=== PATIENT | female | born 1980 | race Caucasian/White ===

== ENCOUNTER 2016-10-03 22:08 | Inpatient (IN) | payer OTHER ==
[2016-10-03 22:27] LABS: URINE APPEARANCE SLCLOUDY; URINE BILIRUBIN NEGATIVE (NEGATIVE); URINE BLOOD NEGATIVE (NEGATIVE); URINE COLOR LTYELLOW; URINE GLUCOSE (UA) NEGATIVE (NEGATIVE); URINE KETONE NEGATIVE (NEGATIVE); URINE LEUK ESTERASE NEGATIVE (NEGATIVE); URINE NITRITE NEGATIVE (NEGATIVE); URINE PROTEIN NEGATIVE (NEGATIVE); URINE UROBILINOGEN NEGATIVE E.U./dl (0.2-1.0)
[2016-10-03 23:16] LABS: BASOPHIL 0.7 % (0-2.0); EOSINOPHIL 1.3 % (0-4.5); MCH 27.5 pg (25.7-33.7); MCHC 32.9 g/dl (32.0-36.0); MEAN CELL VOLUME 83.6 fl (80-96); MEAN PLT VOLUME 9.5 fl (7.5-11.1); NEUTROPHILS 77.3 % (42.8-82.8); PLATELET COUNT 191 K/MM3 (134-434); RDW 14.8 % (11.6-15.6); WHITE BLOOD COUNT 11.4 K/mm3 (4.0-10.0)
--- NOTE | 2016-10-03 23:27 | PDOC ---
[id number] Initial Comments: 10/03/16 23:06 CHIEF COMPLAINT: abdominal pain x 1 month HISTORY OF PRESENT ILLNESS: 35 yo F with no PMH presents to ED with intermittent R abdominal and R back pain x 1 month. She denies any vomiting or diarrhea and reports 'very little nausea". She denies any urinary symptoms including pain, frequency, or blood in the urine. Her last menstrual period was Sep 17 and it was normal. She denies any fever or chills. No recent travel or sick contacts. PAST MEDICAL HISTORY: Denies past medical history FAMILY HISTORY: Denies SOCIAL HISTORY: Denies tobacco, alcohol, illicit drug use. SURGICAL HISTORY: Denies ALLERGIES: No known drug allergies REVIEW OF SYSTEMS General/Constitutional: Denies fever or chills. Denies weakness, weight change. HEENT: Denies change in vision. Denies ear pain or discharge. Denies sore throat. Cardiovascular: Denies chest pain or shortness of breath. Respiratory: Denies cough, wheezing, or hemoptysis. Gastrointestinal: Intermittent RUQ pain radiating to back x 1 month. Denies nausea, vomiting, diarrhea or constipation. Denies rectal bleeding. Genitourinary: Denies dysuria, frequency, or change in urination. Musculoskeletal: Denies joint or muscle swelling or pain. Denies neck or back pain. Skin and breasts: Denies rash or easy bruising. Neurologic: Denies headache, vertigo, loss of consciousness, or loss of sensation. PHYSICAL EXAM General Appearance: Well-appearing, appropriately dressed. No apparent distress , no intoxication. HEENT: EOMI, PERRLA. No conjunctival pallor. No photophobia, scleral icterus. Respiratory/Chest: Lungs CTAB. Cardiovascular: RRR. S1, S2. Vascular Pulses: Dorsalis-Pedis (R): 2+, Dorsalis-Pedis (L): 2+ Gastrointestinal/Abdominal: Minimal RUQ tenderness. Normal bowel sounds. Abdomen soft, non-distended. No tenderness or rebound tenderness. No organomegaly, pulsatile mass, guarding, hernia, hepatomegaly, splenomegaly. Pelvic: External genitalia normal without lesions. Vaginal vault is clear without blood or discharge. Cervix is long and closed. No cervical motion tenderness. Uterus is nontender and normal in size. Adnexa are nontender and without masses. Lymphatic: No adenopathy, tenderness. Musculoskeletal/Extremities: Mild R CVA tenderness. Normal inspection. FROM of all extremities, normal capillary refill. No tenderness to extremities, pedal edema, swelling, erythema or deformity. Integumentary: Appropriate color, dry, warm. No cyanosis, erythema, jaundice or rash Neurologic: disability hearing officer II-XII intact. Fully oriented, alert. Appropriate mood/affect. Motor strength 5/5. No appreciable EOM palsy, facial droop or sensory deficit. <Marietta Castellano - Last Filed: 10/13/16 22:10> - General Chief Complaint: Pain, Acute Stated Complaint: ABD PAIN Time Seen by Provider: 10/03/16 22:32 Past History <Agustina Austin - Last Filed: 10/04/16 08:58> - Past Medical History Asthma: No Cancer: No Cardiac Disorders: No Diabetes: No HTN: No Seizures: No Thyroid Disease: No - Family Disease History Family Disease History: Heart Disease: Mother (hypertension) - Psycho/Social/Smoking Cessation Hx Suicidal Ideation: No Smoking History: Never smoked Have you smoked in the past 12 months: No Hx Alcohol Use: No Drug/Substance Use Hx: No Substance Use Type: None Hx Substance Use Treatment: No <Marietta Castellano - Last Filed: 10/13/16 22:10> - Past Medical History Allergies/Adverse Reactions: Allergies Allergy/AdvReac Type Severity Reaction Status Date / Time No Known Drug Allergies Allergy Verified 10/03/16 22:09 Home Medications: Ambulatory Orders Oxycodone HCl [Roxicodone -] 5 mg PO Q6H PRN #10 tablet MDD 4 10/08/16 *Physical Exam - Vital Signs Last Vital Signs Temp Pulse Resp BP Pulse Ox 98.8 F 58 L 18 93/56 98 10/04/16 07:15 10/04/16 07:15 10/04/16 07:15 10/04/16 07:15 10/04/16 07:15 <Agustina Austin - Last Filed: 10/04/16 08:58> - Vital Signs Last Vital Signs Temp Pulse Resp BP Pulse Ox 97.9 F 72 16 111/78 99 10/03/16 22:10 10/03/16 22:10 10/03/16 22:10 10/03/16 22:10 10/03/16 22:10 <Marietta Castellano - Last Filed: 10/13/16 22:10> ED Treatment Course - LABORATORY CBC & Chemistry Diagram: 10/03/16 23:00 10/03/16 23:00 - ADDITIONAL ORDERS Additional order review: Laboratory Results 10/03/16 10/03/16 23:00 22:13 Sodium 140 Potassium 3.9 Chloride 103 Carbon Dioxide 28 Anion Gap 9 BUN 14 Creatinine 0.7 Creat Clearance w eGFR > 60 Random Glucose 107 H D Calcium 8.7 Total Bilirubin 0.2 D AST 10 L D ALT 13 D Alkaline Phosphatase 61 Total Protein 6.7 Albumin 3.5 Lipase 106 Urine Color Ltyellow Urine Appearance Slcloudy Urine pH 6.0 Ur Specific [place] 1.017 Urine Protein Negative Urine Glucose (UA) Negative Urine Ketones Negative Urine Blood Negative Urine Nitrite Negative Urine Bilirubin Negative Urine Urobilinogen Negative Ur Leukocyte Esterase Negative Urine HCG, Qual Negative 10/03/16 23:00 RBC 4.30 MCV 83.6 MCHC 32.9 RDW 14.8 MPV 9.5 Neutrophils % 77.3 Lymphocytes % 12.7 D Monocytes % 8.0 D Eosinophils % 1.3 Basophils % 0.7 - Medications Given in the ED: ED Medications Discontinued Medications Generic Name Dose Route Start Last Admin Trade Name Freq PRN Reason Stop Dose Admin Cefazolin Sodium 1 gm/ 50 mls @ 100 mls/hr 10/04/16 03:12 10/04/16 03:29 Dextrose IVPB 10/04/16 03:41 100 mls/hr ONCE ONE Administration <Agustina Austin - Last Filed: 10/04/16 08:58> - LABORATORY CBC & Chemistry Diagram: 10/08/16 06:00 10/08/16 06:00 - ADDITIONAL ORDERS Additional order review: Laboratory Results 10/03/16 22:13 Urine Color Ltyellow Urine Appearance Slcloudy Urine pH 6.0 Ur Specific [place] 1.017 Urine Protein Negative Urine Glucose (UA) Negative Urine Ketones Negative Urine Blood Negative Urine Nitrite Negative Urine Bilirubin Negative Urine Urobilinogen Negative Ur Leukocyte Esterase Negative Urine HCG, Qual Negative <Marietta Castellano - Last Filed: 10/13/16 22:10> Medical Decision Making - Medical Decision Making 10/04/16 00:08 35 yo F with no PMH presents to ED with intermittent RLQ pain x 1 month. On exam, patient has very minimal RUQ tenderness and mild R CVA tenderness. Ddx includes but is not limited to; UTI, kidney stones, pancreatitis, cholecystitis, ovarian torsion. -CBC, CMP, lipase -UA, UCx, UPreg Labs: WBC 11.6, otherwise unremarkable. Pelvic exam unremarkable, CT/GC sent. Discussed case with ED attending Samantha, will order abdomen & pelvis CT r/o appy/ german/pancreatitis 10/04/16 03:12 CT results: Lung bases are clear. The visualized cardiac chambers are normal size and configuration. Gallbladder is distended, contains stones and may be mildly inflamed, suggesting cholecystitis. No biliary duct dilation. Normal liver, pancreas, spleen, adrenal glands and kidneys. The stomach and abdominal small and large bowel are normal. There is no aortic aneurysm. There is no significant retroperitoneal lymphadenopathy. The pelvic small and large bowel are normal. The appendix is normal. The uterus and adnexal structures are normal. Urinary bladder is unremarkable. There is no pelvic free fluid. No discrete pelvic lymphadenopathy is identified. IMPRESSION: Suspected cholecystitis may be confirmed with ultrasound. Read by: Nixon Link MD Discussed case with attending MD Singh, who requests patient be admitted for inpatient service. Discussed case with attending hospitalist . Patient was refused inpatient admission or observation. Discussed case with attending MD Singh. Will have patient remain in ED for ultrasound in am. Case discussed in detail with oncoming emergency provider including history, physical exam and ancillary studies. In brief, this patient is being seen in the ED for a chief complaint of: R abdominal pain I have completed the initial assessment interview note and have ordered the following labs: CBC, CMP, lipase I have reviewed the following results: all Pending results: Ultrasound Plan for disposition as follows: pending, likely outpatient f/u with surgery Oncoming KAMALAA Geovanna has assumed care for the patient and will complete the evaluation and treatment. <Marietta Castellano - Last Filed: 10/13/16 22:10> *DC/Admit/Observation/Transfer <Agustina Austin - Last Filed: 10/04/16 08:58> <Marietta Castellano - Last Filed: 10/13/16 22:10> Diagnosis at time of Disposition: Cholecystitis - Discharge Dispostion Disposition: HOME Condition at time of disposition: Improved - Prescriptions
[2016-10-03 23:43] LABS: ALBUMIN 3.5 g/dl (3.4-5.0); ALK PHOS 61 U/L (45-117); ANION GAP 9 (8-16); BILIRUBIN,TOTAL 0.2 mg/dL (0.2-1.0); CALCIUM 8.7 mg/dL (8.5-10.1); CO2 28 mmol/L (21-32); CREATININE 0.7 mg/dL (0.55-1.02); GLUCOSE,RANDOM 107 mg/dL (74-106); SGOT/AST 10 U/L (15-37); SGPT/ALT 13 U/L (12-78); TOT PROT 6.7 g/dl (6.4-8.2)
[2016-10-04] MEDS ORDERED: CEFAZOLIN 1 GM in DEXTROSE 5%-WATER - 50 ML IVPB ONE (03:12)
[2016-10-04] MEDS ORDERED: CEFAZOLIN (PRE-DOCKED) 50 ML IVPB ONE (03:20)
--- NOTE | 2016-10-04 07:44 | PDOC ---
ED Treatment Course - LABORATORY CBC & Chemistry Diagram: 10/03/16 23:00 10/03/16 23:00 - ADDITIONAL ORDERS Additional order review: Laboratory Results 10/03/16 10/03/16 23:00 22:13 Sodium 140 Potassium 3.9 Chloride 103 Carbon Dioxide 28 Anion Gap 9 BUN 14 Creatinine 0.7 Creat Clearance w eGFR > 60 Random Glucose 107 H D Calcium 8.7 Total Bilirubin 0.2 D AST 10 L D ALT 13 D Alkaline Phosphatase 61 Total Protein 6.7 Albumin 3.5 Lipase 106 Urine Color Ltyellow Urine Appearance Slcloudy Urine pH 6.0 Ur Specific [place] 1.017 Urine Protein Negative Urine Glucose (UA) Negative Urine Ketones Negative Urine Blood Negative Urine Nitrite Negative Urine Bilirubin Negative Urine Urobilinogen Negative Ur Leukocyte Esterase Negative Urine HCG, Qual Negative 10/03/16 23:00 RBC 4.30 MCV 83.6 MCHC 32.9 RDW 14.8 MPV 9.5 Neutrophils % 77.3 Lymphocytes % 12.7 D Monocytes % 8.0 D Eosinophils % 1.3 Basophils % 0.7 - Medications Given in the ED: ED Medications Discontinued Medications Generic Name Dose Route Start Last Admin Trade Name Freq PRN Reason Stop Dose Admin Cefazolin Sodium 1 gm/ 50 mls @ 100 mls/hr 10/04/16 03:12 10/04/16 03:29 Dextrose IVPB 10/04/16 03:41 100 mls/hr ONCE ONE Administration Progress Note - Progress Note Progress Note: I have received report from KAMALA Castellano regarding this patient. Pt's initial chief complaint: intermittent right abdominal pain and right back pain x 1 month. Pt's work up completed prior to sign out: labs, UA, abd/pelvis CT Pt treatment given from prior staff: none Pt plan to be completed: Awaiting gallbladder ultrasound to r/o cholecystitis. Dispo: Pending Medical Decision Making - Medical Decision Making A/P: 35 y/o afebrile female with no significant PMH c/o intermittent right abd pain and right back pain x 1 month. Labs and urine unremarkable. The CT scan suggests cholecystitis. Awaiting gallbladder ultrasound Gallbladder Ultrasound IMPRESSION: Probable acute calculus cholecystitis. Spoke with Isatu Gillis, who accepts admission on behalf of Dr. Rodriguez. Pt made NPO and started on fluids. *DC/Admit/Observation/Transfer Diagnosis at time of Disposition: Cholecystitis - Discharge Dispostion Admit: Yes
[2016-10-04] MEDS ORDERED: SODIUM CHLORIDE 1,000 ML IV STA (08:57)
[2016-10-04] MEDS ORDERED: ACETAMINOPHEN 325 MG TABLET (FP) PO PRN (10:31)
[2016-10-04] MEDS ORDERED: ONDANSETRON 4 MG/2 ML VIAL IVPB PRN (10:31)
--- NOTE | 2016-10-04 10:46 | HP ---
CHIEF COMPLAINT: Abdominal pain PCP: HISTORY OF PRESENT ILLNESS: This is a 35 yo F with no significant past medical history only x 1 presents to emergency department complaining of intermittent upper abdominal pain piercing through to right mid back intermittently x 1 month. States pain got worse over past two days. She denies any vomiting or diarrhea but reports being " little nausea". She denies fever or chills or any urinary symptoms including pain, frequency, or blood in the urine or any vaginal discharge. Her last menstrual period was Sep 17 and it was normal. ER course was notable for: (1)Abdominal CT suggesting cholecystitis (2)Abdominal ultrasound with diagnosis of probable acute calculus cholecystitis Recent Travel: none PAST MEDICAL HISTORY: No past medical history PAST SURGICAL HISTORY: x 1 Social History: Smoking: never Alcohol: never Drugs: never Family History: with 3 children Allergies: no known drugs allergies No Known Drug Allergies Allergy (Verified 10/03/16 22:09) HOME MEDICATIONS: Home Medications Medication Instructions Recorded NK [No Known Home Medication] 12/23/15 REVIEW OF SYSTEMS CONSTITUTIONAL: Absent: fever, chills, diaphoresis, generalized weakness, malaise, weight change +loss of appetite HEENT: Absent: rhinorrhea, nasal congestion, throat pain, throat swelling, difficulty swallowing, mouth swelling, ear pain, eye pain, visual changes CARDIOVASCULAR: Absent: chest pain, syncope, palpitations, irregular heart rate, lightheadedness , peripheral edema RESPIRATORY: Absent: cough, shortness of breath, dyspnea with exertion, orthopnea, wheezing, stridor, hemoptysis GASTROINTESTINAL: Absent: vomiting, diarrhea, constipation, melena, hematochezia +abdominal pain, +abdominal distension, +nausea, GENITOURINARY: Absent: dysuria, frequency, urgency, hesitancy, hematuria, flank pain, genital pain MUSCULOSKELETAL: Absent: myalgia, arthralgia, joint swelling, back pain, neck pain SKIN: Absent: rash, itching, pallor HEMATOLOGIC/IMMUNOLOGIC: Absent: easy bleeding, easy bruising, lymphadenopathy, frequent infections ENDOCRINE: Absent: unexplained weight gain, unexplained weight loss, heat intolerance, cold intolerance NEUROLOGIC: Absent: headache, focal weakness or paresthesias, dizziness, unsteady gait, seizure, mental status changes, bladder or bowel incontinence PSYCHIATRIC: Absent: anxiety, depression, suicidal or homicidal ideation, hallucinations. PHYSICAL EXAMINATION GENERAL: Awake, alert, and fully oriented, in no acute distress. HEAD: Normal with no signs of trauma. EYES: Pupils equal, round and reactive to light, extraocular movements intact, sclera anicteric, conjunctiva clear. No lid lag. EARS, NOSE, THROAT: Ears normal, nares patent, oropharynx clear without exudates. Moist mucous membranes. NECK: Normal range of motion, supple without lymphadenopathy, JVD, or masses. LUNGS: Breath sounds equal, clear to auscultation bilaterally. No wheezes, and no crackles. No accessory muscle use. HEART: Regular rate and rhythm, normal S1 and S2 without murmur, rub or gallop. ABDOMEN: Soft, not distended, normoactive bowel sounds, no guarding, no rebound , no masses. No hepatomegaly or splenomegaly. +tender, some guarding with deep palpation, MUSCULOSKELETAL: Normal range of motion at all joints. No bony deformities or tenderness. No CVA tenderness. UPPER EXTREMITIES: 2+ pulses, warm, well-perfused. No cyanosis. No clubbing. Cap refill <2 seconds. No peripheral edema. LOWER EXTREMITIES: 2+ pulses, warm, well-perfused. No calf tenderness. No peripheral edema. NEUROLOGICAL: Cranial nerves II-XII intact. Normal speech. Normal gait. PSYCHIATRIC: Cooperative. Good eye contact. Appropriate mood and affect. SKIN: Warm, dry, normal turgor, no rashes or lesions noted. ASSESSMENT/PLAN: This is a 35 yo F with no significant past medical history only x 1 presents to emergency department with intermittent upper abdominal pain and also pain to right mid back pain intermittently x 1 month with pain getting worse over past two days. She is admitted for calculous cholecystitis 1. Calculous Cholecystitis -NPO -protonix 40mg po -antipyretic/analgesia prn -GI consults -surgical consult -IVF -IV antibiotics; ceftriaxone 1g po daily ( Id consulted) VTE prophylaxis oob ambulating FEN Fluids: IV Normal saline Electrolyte replete as needed Nutrition: remain NPO Problem List - Problem (1) Cholecystitis Code(s): K81.9 - CHOLECYSTITIS, UNSPECIFIED Visit type - Emergency Visit Emergency Visit: Yes ED Registration Date: 10/04/16 Care time: The patient presented to the Emergency Department on the above date and was hospitalized for further evaluation of their emergent condition. - New Patient This patient is new to me today: Yes Date on this admission: 10/04/16 - Critical Care Critical Care patient: No
[2016-10-04 10:51] VITALS: BMI 24.0
--- NOTE | 2016-10-04 14:29 | CON.GI ---
Consult Consult Specialty:: GI Referred by:: Hospitalists Reason for Consultation:: Cholecystitis - History of Present Illness Chief Complaint: I was having pain (pointed to RUQ) that went to my back History of Present Illness: 35F with intermittent RUQ pain over the last 2 months (2-3 times per week) who experienced a severe episode that lasted 2 hours last night prompting her ER visit. In ER she was noted to have WBC 11.4, given a dose of ceftriaxone, noted to have a thick walled GB with stones on US and a CT scan that was not officially read yet but appears to reveal a thickened GB. GI called for further evaluation. No surgical consult placed. - History Source History Provided By: Patient Limitations to Obtaining History: No Limitations - Past Medical History ...LMP: 09/17/16 ...: No Additional Medical History: Denies standing medical problems - Past Surgical History Past Surgical History: Yes: Additional Surgical History: Denies previous surgeries - Alcohol/Substance Use Hx Alcohol Use: Yes (occasional) History of Substance Use: reports: None - Smoking History Smoking history: Never smoked Have you smoked in the past 12 months: No - Social History Usual Living Arrangement: With Spouse ADL: Independent Occupation: stay at home mother History of Recent Travel: No Home Medications - Allergies Allergies/Adverse Reactions: Allergies Allergy/AdvReac Type Severity Reaction Status Date / Time No Known Drug Allergies Allergy Verified 10/03/16 22:09 - Home Medications Home Medications: Ambulatory Orders NK [No Known Home Medication] 12/23/15 Family Disease History - Family Disease History Family Disease History: Other: Father (alive: 65: healthy), Mother (alive: 60: healthy), Brother (4 brothers: healthy), Sister (1 sister: healthy) Other Family History: three healthy children, no family history of colorectal cancer or other Gi malignancy Review of Systems - Review of Systems Constitutional: denies: Chills Cardiovascular: denies: Chest Pain Respiratory: denies: SOB Gastrointestinal: reports: Abdominal Pain, Nausea. denies: Diarrhea, Melena Physical Exam-GI Vital Signs: Vital Signs Temperature 98.9 F 10/04/16 10:45 Pulse Rate 59 L 10/04/16 10:45 Respiratory Rate 18 10/04/16 10:45 Blood Pressure 91/59 10/04/16 10:45 O2 Sat by Pulse Oximetry (%) 99 10/04/16 10:45 Constitutional: Yes: Calm Eyes: No: Sclera Icterus Cardiovascular: Yes: Regular Rate and Rhythm. No: Murmur Respiratory: Yes: CTA Bilaterally Gastrointestinal Inspection: No: Distention, Scars ...Auscultate: Yes: Normoactive Bowel Sounds ...Palpate: Yes: Tenderness (TTP RUQ, + Warner's sign) Edema: No Neurological: Yes: Alert, Oriented Labs: CBC, BMP 10/03/16 23:00 10/03/16 23:00 Hepatic Panel Total Bilirubin 0.2 mg/dL (0.2-1.0) D 10/03/16 23:00 AST 10 U/L (15-37) L D 10/03/16 23:00 ALT 13 U/L (12-78) D 10/03/16 23:00 Alkaline Phosphatase 61 U/L (45-117) 10/03/16 23:00 Albumin 3.5 g/dl (3.4-5.0) 10/03/16 23:00 Imaging - Results Cat Scan: Image Reviewed Ultrasound: Report Reviewed Problem List - Problems (1) Cholecystitis Assessment/Plan: Acute caluclulous cholecystitis: IV Abx Surgical consult NPO Discussed with Hospitalist BAR CATCHER Carlin Code(s): K81.9 - CHOLECYSTITIS, UNSPECIFIED
[2016-10-04] MEDS ORDERED: LEVOFLOXACIN 500 MG IVPB 100 ML IVPB SCH (14:45)
[2016-10-04] MEDS: DEXTROSE 5%-0.45% SALINE 1,000 ML IV SCH (15:58)
[2016-10-04] MEDS: METRONIDAZOLE 500 MG PREMIXED 100 ML IVPB SCH ×2 (15:58→18:26)
[2016-10-04] MEDS ORDERED: CEFTRIAXONE 2 GM in DEXTROSE 5%-WATER - 100 ML IVPB SCH (17:00)
[2016-10-04] MEDS: cefTRIAXone 2 GM/100 ML BAG (PRE-DOCKED) IVPB SCH (17:20)
[2016-10-05] MEDS: METRONIDAZOLE 500 MG PREMIXED 100 ML IVPB SCH ×3 (02:10→18:06)
[2016-10-05 07:30] LABS: BASOPHIL 0.5 % (0-2.0); EOSINOPHIL 2.6 % (0-4.5); MEAN CELL VOLUME 84.9 fl (80-96); MEAN PLT VOLUME 9.9 fl (7.5-11.1); NEUTROPHILS 63.8 % (42.8-82.8); PLATELET COUNT 167 K/MM3 (134-434); RDW 14.7 % (11.6-15.6); WHITE BLOOD COUNT 6.1 K/mm3 (4.0-10.0)
[2016-10-05 08:52] LABS: CALCIUM 8.4 mg/dL (8.5-10.1); CREATININE 0.6 mg/dL (0.55-1.02)
--- NOTE | 2016-10-05 09:37 | CONSULT ---
- Consultation REQUESTING PROVIDER: CHANTALE STOVER CONSULT REQUEST: I have been asked to surgically evaluate this patient for acute cholecystitis/cholelithiasis by Dr. Payton and DOCUMENT IMPROVEMENT SPECIALIST Josemanuel. PCP:Juanita Abernathy HISTORY OF PRESENT ILLNESS: 36 y/o female presented w/ 2 months of intermittent RUQ abdominal; w/u here in the ER is c/w acute cholecystitis/ cholelithiasis; patient staes she is better since admission; w/u and tx. to date reviewed. PMHx: non contributory PSHx: C-S Home Medications Medication Instructions Recorded NK [No Known Home Medication] 12/23/15 Allergies Allergy/AdvReac Type Severity Reaction Status Date / Time No Known Drug Allergies Allergy Verified 10/03/16 22:09 REVIEW OF SYSTEMS: CONSTITUTIONAL: Absent: fever, chills, diaphoresis, generalized weakness, malaise, loss of appetite, weight change CARDIOVASCULAR: Absent: chest pain, syncope, palpitations, irregular heart rate, lightheadedness , peripheral edema RESPIRATORY: Absent: cough, shortness of breath, dyspnea with exertion, wheezing, stridor, hemoptysis GASTROINTESTINAL: As above; post prendial abdominal pain and FFI w/ nausea. GENITOURINARY: Absent: dysuria, frequency, urgency, hesitancy, hematuria, flank pain, genital pain MUSCULOSKELETAL: Absent: myalgia, arthralgia, joint swelling, back pain, neck pain SKIN: Absent: rash, itching, pallor HEMATOLOGIC/IMMUNOLOGIC: Absent: easy bleeding, easy bruising, lymphadenopathy NEUROLOGIC: Absent: headache, focal weakness, paresthesias, dizziness, unsteady gait, seizure, mental status changes, bladder or bowel incontinence PSYCHIATRIC: Absent: anxiety, depression, suicidal or homicidal ideation, hallucinations. PHYSICAL EXAM: GENERAL: Awake, alert, and fully oriented, in no acute distress. HEAD: Normal with no signs of trauma. NECK: Normal ROM, supple without lymphadenopathy, JVD, or masses. LUNGS: Clear to auscultation bilat anteriorly. No wheezes, and no crackles. No accessory muscle use. HEART: Regular rate and rhythm. No murmurs ABDOMEN: Soft, nontender, not distended, normoactive bowel sounds, no guarding, no rebound, no masses. No organomegaly; healed C-S scar MUSCULOSKELETAL: Normal ROM at all joints. No bony deformities or tenderness. No CVA tenderness. UPPER EXTREMITIES: 2+ pulses, warm, well-perfused. No cyanosis. Cap refill <2 seconds. No peripheral edema. LOWER EXTREMITIES: 2+ pulses, warm, well-perfused. No calf tenderness. No peripheral edema. NEUROLOGICAL: Normal speech, gait not observed. PSYCH: Cooperative. Good eye contact. Appropriate mood and affect. SKIN: Warm, dry, normal turgor, no rashes or lesions noted. Vital Signs Temperature 98.3 F 10/05/16 06:00 Pulse Rate 62 10/05/16 06:00 Respiratory Rate 20 10/05/16 06:00 Blood Pressure 90/55 10/05/16 06:00 O2 Sat by Pulse Oximetry (%) 100 10/04/16 15:00 Lab Results WBC 6.1 K/mm3 (4.0-10.0) D 10/05/16 06:00 RBC 4.24 M/mm3 (3.60-5.2) 10/05/16 06:00 Hgb 11.9 GM/dL (10.7-15.3) 10/05/16 06:00 Hct 36.0 % (32.4-45.2) 10/05/16 06:00 MCV 84.9 fl (80-96) 10/05/16 06:00 MCHC 33.0 g/dl (32.0-36.0) 10/05/16 06:00 RDW 14.7 % (11.6-15.6) 10/05/16 06:00 Plt Count 167 K/MM3 (134-434) 10/05/16 06:00 Sodium 141 mmol/L (136-145) 10/05/16 06:00 Potassium 4.0 mmol/L (3.5-5.1) 10/05/16 06:00 Chloride 106 mmol/L (98-107) 10/05/16 06:00 Carbon Dioxide 25 mmol/L (21-32) 10/05/16 06:00 Anion Gap 10 (8-16) 10/05/16 06:00 BUN 5 mg/dL (7-18) L D 10/05/16 06:00 Creatinine 0.6 mg/dL (0.55-1.02) 10/05/16 06:00 Random Glucose 102 mg/dL (74-106) 10/05/16 06:00 Calcium 8.4 mg/dL (8.5-10.1) L 10/05/16 06:00 Blood Type O POSITIVE 10/05/16 06:00 Antibody Screen Negative 10/05/16 06:00 CT scan a/p reviewed; US reviewed; LFT's wnl IMP: acute cholecystitis/cholelithiasis PLAN: Lap german possible open possible open 10/06/16; r/b/t alternatives to surgery d/w the patient who will give informed consent; conversion to an open procedure discussed. Chago Mendenhall MD FACS Visit type - Case Type Case Type: ED Admission - Emergency Emergency Visit: Yes ED Registration Date: 10/04/16 Care time: The patient presented to the Emergency Department on the above date and was hospitalized for further evaluation of their emergent condition.
[2016-10-05] MEDS ORDERED: CEFTRIAXONE 50 ML IVPB SCH (10:00)
[2016-10-05] MEDS: cefTRIAXone 2 GM/100 ML BAG (PRE-DOCKED) IVPB SCH (11:26)
[2016-10-05] MEDS: PANTOPRAZOLE 40 MG TABLET (FP) PO SCH ×2 (11:26→14:58)
--- NOTE | 2016-10-05 12:49 | PN ---
Physical Exam: SUBJECTIVE: Patient seen and examined at bedside. Denies pain, nausea, vomiting. Feels hungry. OBJECTIVE: Vital Signs Period Temp Pulse Resp BP Sys/Mcdonald Pulse Ox Last 24 Hr 97.8 F-98.3 F 61-72 17-20 84-111/47-70 100 GENERAL: The patient is awake, alert, and fully oriented, in no acute distress. HEAD: Normal with no signs of trauma. EYES: PERRL, extraocular movements intact, sclera anicteric, conjunctiva clear. No ptosis. LUNGS: Breath sounds equal, clear to auscultation bilaterally, no wheezes, no crackles, no accessory muscle use. HEART: Regular rate and rhythm, S1, S2 without murmur, rub or gallop. ABDOMEN: Soft, very mild tenderness over epigastrum; nondistended, normoactive bowel sounds, no guarding, no rebound EXTREMITIES: 2+ pulses, warm, well-perfused, no edema. NEUROLOGICAL: Cranial nerves II through XII grossly intact. Normal speech, gait not observed. Laboratory Results - last 24 hr 10/05/16 10/05/16 10/05/16 06:00 06:00 06:00 WBC 6.1 D RBC 4.24 Hgb 11.9 Hct 36.0 MCV 84.9 MCHC 33.0 RDW 14.7 Plt Count 167 MPV 9.9 Neutrophils % 63.8 Lymphocytes % 23.5 D Monocytes % 9.6 Eosinophils % 2.6 D Basophils % 0.5 Sodium 141 Potassium 4.0 Chloride 106 Carbon Dioxide 25 Anion Gap 10 BUN 5 L D Creatinine 0.6 Random Glucose 102 Calcium 8.4 L Total Amylase 52 Lipase 119 Blood Type O POSITIVE Antibody Screen Negative Active Medications Generic Name Dose Route Start Last Admin Trade Name Freq PRN Reason Stop Dose Admin Acetaminophen 650 mg 10/04/16 10:31 Tylenol - PO Q4H PRN FEVER OR PAIN Ceftriaxone Sodium 2 gm 10/04/16 17:00 10/05/16 11:26 Rocephin 2gm Ivpb (Pre-Docked) IVPB 2 gm DAILY CINTHYA Administration Metronidazole 100 mls @ 100 mls/hr 10/04/16 14:45 10/05/16 11:27 Flagyl 500mg Premixed Ivpb - IVPB 100 mls/hr Q8H-IV CINTHYA Administration Dextrose/Sodium Chloride 1,000 mls @ 125 mls/hr 10/04/16 14:45 10/04/16 15:58 D5-1/2ns - IV 125 mls/hr ASDIR CINTHYA Administration Pantoprazole Sodium 40 mg 10/05/16 10:00 10/05/16 11:26 Protonix - PO 40 mg DAILY CINTHYA Administration ASSESSMENT/PLAN: This is a 35 yo F with no significant past medical history only x 1 presents to emergency department with intermittent upper abdominal pain and also pain to right mid back pain intermittently x 1 month with pain getting worse over past two days. She is admitted for calculous cholecystitis Acute cholecystitis/cholelithiasis --CT and US consistent with acute calculus cholecystitis --LFTs wnl --seen and evaluated by Dr. Mendenhall, surgery scheduled for 10/06 --continue empiric ceftriaxone (day #2) and metronidazole (day #2) --NPO F/E/N Fluids: D%1/2 @ 125mL/hr Electrolytes: replete as indicated Nutrition: NPO DVT prophylaxis: no chemical prophylaxis due to surgery; SCDs, oob, ambulation Dispo: continues to require inpatient care. Full Code. Visit type - Emergency Visit Emergency Visit: Yes ED Registration Date: 10/04/16 Care time: The patient presented to the Emergency Department on the above date and was hospitalized for further evaluation of their emergent condition. - New Patient This patient is new to me today: Yes Date on this admission: 10/05/16 - Critical Care Critical Care patient: No
[2016-10-05] MEDS: DEXTROSE 5%-0.45% SALINE 1,000 ML IV SCH ×2 (14:12→23:49)
--- NOTE | 2016-10-05 16:20 | PN ---
Progress Note (short form) - Note Progress Note: ID consult dictated imp/reccd 36 year old female admitted for acute cholycystitis spoke with hospitilist yesterday she is on rocephin/flagyl OR is scheduled for am
[2016-10-05 18:58] LABS: URINE APPEARANCE CLEAR; URINE BILIRUBIN NEGATIVE (NEGATIVE); URINE BLOOD NEGATIVE (NEGATIVE); URINE COLOR LTYELLOW; URINE GLUCOSE (UA) NEGATIVE (NEGATIVE); URINE KETONE NEGATIVE (NEGATIVE); URINE LEUK ESTERASE NEGATIVE (NEGATIVE); URINE NITRITE NEGATIVE (NEGATIVE); URINE PROTEIN NEGATIVE (NEGATIVE); URINE UROBILINOGEN NEGATIVE E.U./dl (0.2-1.0)
[2016-10-06] MEDS: METRONIDAZOLE 500 MG PREMIXED 100 ML IVPB SCH ×3 (01:40→17:36)
[2016-10-06] MEDS ORDERED: SODIUM CHLORIDE 500 ML IV STA (07:24)
[2016-10-06 08:19] LABS: INR 1.21 (0.82-1.09); PROTHROMBIN TIME (PATIENT) 13.4 SEC (9.98-11.88)
[2016-10-06 08:21] LABS: BASOPHIL 0.8 % (0-2.0); EOSINOPHIL 4.4 % (0-4.5); MCH 27.6 pg (25.7-33.7); MCHC 32.8 g/dl (32.0-36.0); MEAN CELL VOLUME 84.2 fl (80-96); MEAN PLT VOLUME 10.2 fl (7.5-11.1); NEUTROPHILS 56.6 % (42.8-82.8); PLATELET COUNT 172 K/MM3 (134-434); RDW 14.9 % (11.6-15.6); WHITE BLOOD COUNT 4.8 K/mm3 (4.0-10.0)
[2016-10-06] MEDS: cefTRIAXone 2 GM/100 ML BAG (PRE-DOCKED) IVPB SCH ×2 (08:21→11:24)
[2016-10-06 08:57] LABS: ALBUMIN 3.2 g/dl (3.4-5.0); ANION GAP 10 (8-16); BILIRUBIN,TOTAL 0.5 mg/dL (0.2-1.0); CALCIUM 8.4 mg/dL (8.5-10.1); CO2 25 mmol/L (21-32); CREATININE 0.6 mg/dL (0.55-1.02); GLUCOSE,RANDOM 98 mg/dL (74-106); SGOT/AST 22 U/L (15-37); SGPT/ALT 28 U/L (12-78); TOT PROT 6.2 g/dl (6.4-8.2)
[2016-10-06 08:58] LABS: ALK PHOS 43 U/L (45-117)
[2016-10-06] MEDS ORDERED: BUPIVACAINE HCL/PF 0.5% (5MG/ML) 10 ML VIAL ONE (09:13)
[2016-10-06] MEDS ORDERED: MIDAZOLAM HCL 2 MG/2 ML SINGLE DOSE VIAL ONE (09:33)
[2016-10-06] MEDS ORDERED: PROPOFOL 20 ML ONE ×2 (09:33→11:21)
[2016-10-06] MEDS ORDERED: SUCCINYLCHOLINE CHLORIDE 200 MG/10 ML VIAL ONE (09:35)
[2016-10-06] MEDS ORDERED: ROCURONIUM BROMIDE 50 MG/5 ML VIAL ONE (09:35)
[2016-10-06] MEDS ORDERED: ONDANSETRON 4 MG/2 ML VIAL IVPUSH PRN ×2 (09:51→12:19)
[2016-10-06] MEDS ORDERED: PROMETHAZINE HCL 25 MG/1 ML VIAL IVPUSH PRN ×2 (09:51→12:19)
[2016-10-06] MEDS ORDERED: BUPIVACAINE HCL/PF 0.5% (5MG/ML) 10 ML VIAL IJ ONE ×3 (09:58→11:24)
[2016-10-06] MEDS ORDERED: LACTATED RINGERS SOLUTION 1,000 ML IV SCH (10:00)
[2016-10-06] MEDS ORDERED: NEOSTIGMINE METHYLSULFATE 0.5 MG/ML - 10 ML MDV ONE (10:13)
[2016-10-06] MEDS ORDERED: HYDROmorphone HCL/PF 1 MG/ML VIAL (FOR PYXIS CHARGING ONLY) ONE (10:54)
--- NOTE | 2016-10-06 11:37 | OP ---
Operative Note - Note: Operative Date: 10/06/16 Pre-Operative Diagnosis: acute cholecystitis Operation: lap german Findings: acute cholecystitis/cholelithiasis and hydrops of gallbladder Post-Operative Diagnosis: Same as Pre-op Surgeon: Chago Mendenhall Powder Blender And Pourer: Sugar Hussein Anesthesia: General Specimens Removed: gallbladder and contents Estimated Blood Loss (mls): 20 Drains & Tubes with Location: 10 mm STACI Operative Report Dictated: Yes
--- NOTE | 2016-10-06 11:55 | SURG ---
Surgery Knuckle Strap Sewer Note Knuckle Strap Sewer: Sugar Hussein PA-C Date of Service: 10/06/16 Diagnosis: acute cholecystitis Procedure: laparoscopic cholecystectomy I was present for the entirety of the operative procedure. For further detail, please refer to operative report. Visit type - Case Type Case Type: ED Admission - New patient This patient is new to me today: Yes Date on this admission: 10/06/16
[2016-10-06] MEDS ORDERED: ACETAMINOPHEN 325 MG TABLET (FP) PO PRN (12:19)
--- NOTE | 2016-10-06 12:24 | PN ---
Physical Exam: SUBJECTIVE: Patient seen and examined OBJECTIVE: Vital Signs Period Temp Pulse Resp BP Sys/Mcdonald Pulse Ox Last 24 Hr 98.2 F-98.5 F 48-77 18-20 77-107/44-64 100 GENERAL: The patient is awake, alert, and fully oriented, in no acute distress. HEAD: Normal with no signs of trauma. EYES: PERRL, extraocular movements intact, sclera anicteric, conjunctiva clear. No ptosis. LUNGS: Breath sounds equal, clear to auscultation bilaterally, no wheezes, no crackles, no accessory muscle use. HEART: Regular rate and rhythm, S1, S2 without murmur, rub or gallop. ABDOMEN: Soft, very mild tenderness over epigastrum; nondistended, normoactive bowel sounds, no guarding, no rebound EXTREMITIES: 2+ pulses, warm, well-perfused, no edema. NEUROLOGICAL: Cranial nerves II through XII grossly intact. Normal speech, gait not observed. Laboratory Results - last 24 hr 10/05/16 10/06/16 10/06/16 16:45 06:35 06:35 WBC RBC Hgb Hct MCV MCHC RDW Plt Count MPV Neutrophils % Lymphocytes % Monocytes % Eosinophils % Basophils % INR 1.21 H Sodium Potassium Chloride Carbon Dioxide Anion Gap BUN Creatinine Creat Clearance w eGFR Random Glucose Calcium Magnesium Total Bilirubin AST ALT Alkaline Phosphatase Total Protein Albumin Urine Color Ltyellow Urine Appearance Clear Urine pH 7.0 Ur Specific [place] 1.008 Urine Protein Negative Urine Glucose (UA) Negative Urine Ketones Negative Urine Blood Negative Urine Nitrite Negative Urine Bilirubin Negative Urine Urobilinogen Negative Ur Leukocyte Esterase Negative Blood Type O POSITIVE Antibody Screen Negative 10/06/16 10/06/16 06:35 06:35 WBC 4.8 RBC 4.28 Hgb 11.8 Hct 36.1 MCV 84.2 MCHC 32.8 RDW 14.9 Plt Count 172 MPV 10.2 Neutrophils % 56.6 Lymphocytes % 27.3 Monocytes % 10.9 H Eosinophils % 4.4 Basophils % 0.8 INR Sodium 142 Potassium 3.8 Chloride 107 Carbon Dioxide 25 Anion Gap 10 BUN 5 L Creatinine 0.6 Creat Clearance w eGFR > 60 Random Glucose 98 Calcium 8.4 L Magnesium 2.0 Total Bilirubin 0.5 D AST 22 D ALT 28 D Alkaline Phosphatase 43 L D Total Protein 6.2 L Albumin 3.2 L Urine Color Urine Appearance Urine pH Ur Specific [place] Urine Protein Urine Glucose (UA) Urine Ketones Urine Blood Urine Nitrite Urine Bilirubin Urine Urobilinogen Ur Leukocyte Esterase Blood Type Antibody Screen Current Medications Generic Name Dose Route Start Last Admin Trade Name Samuelq PRN Reason Stop Dose Admin Acetaminophen 650 mg 10/06/16 12:19 Tylenol - PO Q4H PRN FEVER OR PAIN Ceftriaxone Sodium 2 gm 10/07/16 10:00 Rocephin 2gm Ivpb (Pre-Docked) IVPB DAILY CINTHYA Fentanyl 50 mcg 10/06/16 12:19 Sublimaze Injection - IVPUSH 10/09/16 09:52 [id number] PRN PAIN Metronidazole 100 mls @ 100 mls/hr 10/06/16 18:00 Flagyl 500mg Premixed Ivpb - IVPB Q8H-IV CINTHYA Lactated Ringer's 1,000 mls @ 125 mls/hr 10/06/16 12:19 Lactated Ringers Solution IV ASDIR [facility] Ondansetron HCl 4 mg 10/06/16 12:19 Zofran Injection IVPUSH 10/06/16 15:52 Q6H PRN NAUSEA AND/OR VOMITING Oxycodone HCl 5 mg 10/06/16 11:47 Roxicodone - PO Q4H PRN PAIN Pantoprazole Sodium 40 mg 10/07/16 10:00 Protonix - PO DAILY [facility] ASSESSMENT/PLAN: 35 year-old female with no significant PMH admitted for acute cholecystitis. Acute cholecystitis/cholelithiasis and hydrops of the gallbladder s/p lap german 10/06 --drain in place --continue empiric ceftriaxone (day #3) and metronidazole (day #3) F/E/N Fluids: PO intake adequate Electrolytes: replete as indicated Nutrition: clears DVT prophylaxis: no chemical prophylaxis for 24 hours; SCDs, oob, ambulation Dispo: continues to require inpatient care. Full Code. Visit type - Emergency Visit Emergency Visit: Yes ED Registration Date: 10/04/16 Care time: The patient presented to the Emergency Department on the above date and was hospitalized for further evaluation of their emergent condition. - New Patient This patient is new to me today: No - Critical Care Critical Care patient: No
[2016-10-06] MEDS ORDERED: PROMETHAZINE HCL 25 MG/1 ML VIAL ONE (12:25)
--- NOTE | 2016-10-06 16:12 | EKG ---
Test Reason : Blood Pressure : / mmHG Vent. Rate : 063 BPM Atrial Rate : 063 BPM P-R Int : 130 ms QRS Dur : 098 ms QT Int : 406 ms P-R-T Axes : 024 -14 -01 degrees QTc Int : 415 ms NORMAL SINUS RHYTHM INCOMPLETE RIGHT BUNDLE BRANCH BLOCK BORDERLINE ECG WHEN COMPARED WITH ECG OF 23-DEC-2015 21:57, VENT. RATE HAS DECREASED BY 44 BPM T WAVE VARIATION Confirmed by RADHA STOVER, BRAYDON ([id number]) on 10/06/2016 4:12:16 PM Referred By: Confirmed By:BRAYDON GARCIA MD
[2016-10-06] MEDS: PANTOPRAZOLE 40 MG TABLET (FP) PO SCH (16:14)
[2016-10-06] MEDS: LACTATED RINGERS SOLUTION 1,000 ML IV SCH (17:37)
[2016-10-07] MEDS: METRONIDAZOLE 500 MG PREMIXED 100 ML IVPB SCH ×3 (02:11→18:15)
[2016-10-07] MEDS: LACTATED RINGERS SOLUTION 1,000 ML IV SCH ×2 (02:14→12:56)
[2016-10-07 07:18] LABS: BASOPHIL 0.4 % (0-2.0); EOSINOPHIL 0.8 % (0-4.5); MCH 28.3 pg (25.7-33.7); MCHC 33.6 g/dl (32.0-36.0); MEAN CELL VOLUME 84.2 fl (80-96); MEAN PLT VOLUME 10.1 fl (7.5-11.1); NEUTROPHILS 71.1 % (42.8-82.8); PLATELET COUNT 187 K/MM3 (134-434); RDW 14.6 % (11.6-15.6)
[2016-10-07 07:47] LABS: ALBUMIN 3.3 g/dl (3.4-5.0); ANION GAP 9 (8-16); CALCIUM 8.4 mg/dL (8.5-10.1); CO2 29 mmol/L (21-32); CREATININE 0.7 mg/dL (0.55-1.02); GLUCOSE,RANDOM 108 mg/dL (74-106); MAGNESIUM 1.6 mg/dL (1.8-2.4); PHOSPHOROUS 3.4 mg/dL (2.5-4.9); SGOT/AST 43 U/L (15-37); SGPT/ALT 56 U/L (12-78)
[2016-10-07 07:49] LABS: ALK PHOS 48 U/L (45-117); BILIRUBIN,TOTAL 0.5 mg/dL (0.2-1.0); TOT PROT 6.3 g/dl (6.4-8.2)
--- NOTE | 2016-10-07 08:05 | PN ---
Progress Note (short form) - Note Progress Note: Surgery- Dr. Mendenhall Patient seen and examined this morning. Patient states she is doing well, have a little pain, that is controlled. She states she has been tolerating her clear liquid diet without nausea or vomiting. She states she has passed gas. She has been OOB and is urinating without issue. She denies fever, chills, CP/ SOB. Last Vital Signs Temp Pulse Resp BP Pulse Ox 99.5 F 74 18 117/75 100 10/07/16 06:00 10/07/16 06:00 10/07/16 06:00 10/07/16 06:00 10/06/16 21:00 CBC, BMP 10/07/16 06:00 STACI output 30 ml overnight per nursing Exam: Gen: NAD, resting comfortably in bed Abd: Soft, nondistended, mild tenderness with palp RUQ and around incisions. Dressings over port sites clean, dry intact. STACI drain in place with little serosanguineous drainage, dressing over STACI drain with some dry drainage, intact Problem List - Problems (1) Cholecystitis Assessment/Plan: POD#1 s/p laparoscopic cholecystectomy Patient tolerating clears, advance to regular diet as tolerated Pain control with oral pain medication Complete dose of ceftriaxone this morning and then DC abx Continue STACI OOB/Ambulate Discussed with Dr. Mendenhall Code(s): K81.9 - CHOLECYSTITIS, UNSPECIFIED
[2016-10-07] MEDS ORDERED: PANTOPRAZOLE 40 MG TABLET (FP) PO SCH (10:00)
--- NOTE | 2016-10-07 10:09 | CONS ---
DATE OF CONSULTATION: DATE OF DICTATION: 10/05/2016 INFECTIOUS DISEASE CONSULTATION REQUESTING PHYSICIAN: Hospitalist service. CONSULTING PHYSICIAN: Mina Weston M.D. HISTORY OF PRESENT ILLNESS: This is a 36-year-old woman who has had intermittent right upper quadrant pain for the last 2 months several times a week. She had a severe episode and came to the emergency room on the . White count is 11.4. She had a sonogram and was noted to have acute cholecystitis. She is currently resting comfortably. Her abdominal pain has resolved. She is n.p.o. and plans are for surgery tomorrow. I have been asked to see her for antibiotic recommendations. PAST MEDICAL HISTORY: Unremarkable . PAST SURGICAL HISTORY: Notable for . ALLERGIES: No known drug allergies. MEDICATION: She takes no medications. FAMILY HISTORY: Unremarkable. Family is fairly healthy. She has 3 children who are healthy. SOCIAL HISTORY: She is . She lives with a spouse. She is a stay at home mom. There is no history of cigarette or substance use. REVIEW OF SYSTEMS: Notable for she is hungry. PHYSICAL EXAMINATION: General: She is awake and alert. Vital signs: Temperature 98.4, pulse 77, blood pressure 105/47, respiratory rate 20. HEENT: Normocephalic. Eyes are anicteric. Neck: Supple. Lungs: Clear to auscultation. Heart: Regular rate and rhythm. Abdomen: Soft. She has mild right upper quadrant discomfort to palpation. Extremities: Without edema. LABORATORY: White count on admission was 11.4, repeat today is 6.1, hemoglobin 11.9, platelets 167, BUN and creatinine are 5 and 7.6, UA is negative. IMPRESSION: In summary, this is a young lady with acute cholecystitis who is scheduled for operating room tomorrow. I was called yesterday by the hospitalist service, who I spoke with. I was called yesterday by the hospitalist regarding her care. I spoke with the hospitalist, and we started her on Rocephin and Flagyl. She is scheduled for the operating room in the a.m. Further recommendations to follow based on her clinical course. MINA WESTON M.D. /[id number]
[2016-10-07] MEDS: oxyCODONE HCL 5 MG TABLET PO PRN ×2 (10:54→22:18)
[2016-10-07] MEDS: cefTRIAXone 2 GM/100 ML BAG (PRE-DOCKED) IVPB SCH (12:04)
--- NOTE | 2016-10-07 13:16 | PN ---
Physical Exam: SUBJECTIVE: Patient seen and examined at bedside. AAOx3. Pt. states that she has some abdominal pain. Explained that there would be some discomfort post operatively and that she has medication for pain. Pt. has not had a bowel movement yet, but admits to passing gas. Otherwise, pt has no complaints. OBJECTIVE: Vital Signs Period Temp Pulse Resp BP Sys/Mcdonald Pulse Ox Last 24 Hr 18 F-99.5 F 58-79 16-20 101-146/49-705 100-100 GENERAL: The patient is awake, alert, and fully oriented, in no acute distress. HEAD: Normal with no signs of trauma. EYES: PERRL, extraocular movements intact, sclera anicteric, conjunctiva clear. No ptosis. ENT: Ears normal, nares patent, oropharynx clear without exudates, moist mucous membranes. NECK: Trachea midline, full range of motion, supple. LUNGS: Breath sounds equal, clear to auscultation bilaterally, no wheezes, no crackles, no accessory muscle use. HEART: Regular rate and rhythm, S1, S2 without murmur, rub or gallop. ABDOMEN: Mild diffuse abdominal tenderness to palpation. STACI drain placed in the RUQ. Mild serosanguinous fluid around the dressing. Dressing intact. 25ml of serosanguinous fluid in the drain. Soft, nondistended, normoactive bowel sounds , no guarding, no rebound, no hepatosplenomegaly, no masses. EXTREMITIES: 2+ pulses, warm, well-perfused, no edema. NEUROLOGICAL: Cranial nerves II through XII grossly intact. Normal speech, gait not observed. PSYCH: Normal mood, normal affect. SKIN: Warm, dry, normal turgor, no rashes or lesions noted Laboratory Results - last 24 hr 10/07/16 10/07/16 06:00 06:00 WBC 10.0 D RBC 4.46 Hgb 12.6 Hct 37.5 MCV 84.2 MCHC 33.6 RDW 14.6 Plt Count 187 MPV 10.1 Neutrophils % 71.1 D Lymphocytes % 19.6 D Monocytes % 8.1 Eosinophils % 0.8 D Basophils % 0.4 Sodium 143 Potassium 3.7 Chloride 105 Carbon Dioxide 29 Anion Gap 9 BUN 5 L Creatinine 0.7 Creat Clearance w eGFR > 60 Random Glucose 108 H Calcium 8.4 L Phosphorus 3.4 Magnesium 1.6 L Total Bilirubin 0.5 AST 43 H D ALT 56 D Alkaline Phosphatase 48 Total Protein 6.3 L Albumin 3.3 L Active Medications Generic Name Dose Route Start Last Admin Trade Name Samuelq PRN Reason Stop Dose Admin Acetaminophen 650 mg 10/06/16 12:19 Tylenol - PO Q4H PRN FEVER OR PAIN Ceftriaxone Sodium 2 gm 10/07/16 10:00 10/07/16 12:04 Rocephin 2gm Ivpb (Pre-Docked) IVPB 2 gm DAILY CINTHYA Administration Metronidazole 100 mls @ 100 mls/hr 10/06/16 18:00 10/07/16 10:54 Flagyl 500mg Premixed Ivpb - IVPB 100 mls/hr Q8H-IV CINTHYA Administration Lactated Ringer's 1,000 mls @ 125 mls/hr 10/06/16 12:19 10/07/16 12:56 Lactated Ringers Solution IV 125 mls/hr ASDIR CINTHYA Administration Oxycodone HCl 5 mg 10/06/16 11:47 10/07/16 10:54 Roxicodone - PO 5 mg Q4H PRN Administration PAIN Pantoprazole Sodium 40 mg 10/07/16 10:00 10/07/16 10:54 Protonix - PO 40 mg DAILY CINTHYA Administration ASSESSMENT/PLAN: 35 year-old female with no significant PMH admitted for acute cholecystitis. Acute cholecystitis/cholelithiasis and hydrops of the gallbladder s/p lap german 10/06 POD #1 -- Drain in place. Dressing is intact with mild serosanguanous drainage. 110 ml of fluid collected in the drain over the past 24 hours per nursing. -- Other wound dressings are dry and intact. -- Continue empiric ceftriaxone (day #4) and metronidazole (day #4). Pt. is afebrile -- Surgical consult appreciated. Oxycodone orally as needed for pain management. F/E/N Fluids: PO intake adequate Electrolytes: Replete as indicated Nutrition: Advance diet to full fluids tonight. DVT prophylaxis: no chemical prophylaxis for 24 hours; SCDs, oob, ambulation Dispo: continues to require inpatient care. Full Code. Visit type - Emergency Visit Emergency Visit: Yes ED Registration Date: 10/04/16 Care time: The patient presented to the Emergency Department on the above date and was hospitalized for further evaluation of their emergent condition. - New Patient This patient is new to me today: Yes Date on this admission: 10/07/16 - Critical Care Critical Care patient: No - Discharge Referral Referred to [facility] No
--- NOTE | 2016-10-07 14:02 | PATH ---
Surgical Pathology Report Patient Name: BERT DEAN [facility]. Rec. #: [id number] /Age/Gender: 1980 (Age: 36) / F Account: [id number] Location: [facility]/SURG Taken: 10/06/2016 Received: 10/06/2016 Reported: 10/07/2016 Physicians: Chago Mendenhall MD Specimen(s) Received GALLBLADDER Clinical History Cholecystitis Final Diagnosis APPENDIX, APPENDECTOMY: ACUTE AND CHRONIC CHOLECYSTITIS, CHOLELITHIASIS. ONE BENIGN REACTIVE LYMPH NODE. Electronically Signed Miguel Perry M.D. Gross Description Received in formalin, labeled "gallbladder" is an 8.6 x 3.0 x 2.0 cm gallbladder with a 0.2 cm in length portion of cystic duct attached. A 0.5 cm greatest dimension rosas periductal lymph node is present. The outer surface is rosas-pink and varies from smooth to shaggy. The lumen contains rosas gelatinous bile and 1.8 cm yellow ovoid bosselated cholelith. An additional 1.6 cm yellow bosselated cholelith is present in the container. The mucosa is rosas-red, velvety and focally eroded. The wall of the gallbladder averages 0.3 cm in thickness. Manager Office sections are submitted in one cassette.
[2016-10-07] MEDS ORDERED: MAGNESIUM SULF 50% (8.12 MEQ/2 ML-1 GM VIAL) IVPB ONE (23:00)
[2016-10-08] MEDS: METRONIDAZOLE 500 MG PREMIXED 100 ML IVPB SCH ×2 (01:57→09:16)
[2016-10-08] MEDS: LACTATED RINGERS SOLUTION 1,000 ML IV SCH (06:10)
[2016-10-08 08:09] LABS: CALCIUM 8.3 mg/dL (8.5-10.1); CREATININE 0.6 mg/dL (0.55-1.02); MAGNESIUM 2.1 mg/dL (1.8-2.4); PHOSPHOROUS 3.8 mg/dL (2.5-4.9)
--- NOTE | 2016-10-08 08:15 | PN ---
Progress Note (short form) - Note Progress Note: Surgery-Dr. Mendenhall Patient seen and examined. Patient states she is doing well, pain is controlled with oral pain medication. She is tolerating a regular diet without nausea or vomiting. She is urinating without issue and passing gas. She has been OOB/ambulating. She denies fever/chills. Last Vital Signs Temp Pulse Resp BP Pulse Ox 98.3 F 70 18 116/79 100 10/08/16 06:00 10/08/16 06:00 10/08/16 06:00 10/08/16 06:00 10/07/16 21:00 Labs pending STACI output 5 ml overnight Exam: Gen: NAD, resting comfortably in bed Abd: Soft, nondistended, minimal tenderness to palp around incisions, steri strips bandaids over port sites clean/dry/intact, STACI drain removed on rounds, intact, patient tolerated well Problem List - Problems (1) Cholecystitis Assessment/Plan: POD#2 s/p laparoscopic cholecystectomy Patient is tolerating regular diet DC IV fluids STACI drain removed on rounds DC antibiotics Pain control with PO pain medication Patient may be discharged home from surgical standpoint with instructions to follow-up with Dr. Mendenhall in one week Discussed with Dr. Mendenhall Code(s): K81.9 - CHOLECYSTITIS, UNSPECIFIED
[2016-10-08 08:16] LABS: BASOPHIL 0.5 % (0-2.0); EOSINOPHIL 2.1 % (0-4.5); MCHC 33.1 g/dl (32.0-36.0); MEAN CELL VOLUME 84.5 fl (80-96); MEAN PLT VOLUME 9.7 fl (7.5-11.1); NEUTROPHILS 66.8 % (42.8-82.8); PLATELET COUNT 166 K/MM3 (134-434); RDW 15.3 % (11.6-15.6)
--- NOTE | 2016-10-08 09:10 | DS ---
Physical Exam: SUBJECTIVE: Patient seen and examined bedside. STACI drain removed this morning. Pt. states that her pain is better and she had a bowel movement this morning. She has no complaints at this time and feels that her pain is well controlled. She is asking about discharge. OBJECTIVE: Vital Signs Period Temp Pulse Resp BP Sys/Mcdonald Pulse Ox Last 24 Hr 97.9 F-98.5 F 56-71 18-18 102-116/64-79 100 PHYSICAL EXAM GENERAL: The patient is awake, alert, and fully oriented, in no acute distress. HEAD: Normal with no signs of trauma. EYES: PERRL, extraocular movements intact, sclera anicteric, conjunctiva clear. ENT: Ears normal, nares patent, oropharynx clear without exudates, moist mucous membranes. NECK: Trachea midline, full range of motion, supple. LUNGS: Breath sounds equal, clear to auscultation bilaterally, no wheezes, no crackles, no accessory muscle use. HEART: Regular rate and rhythm, S1, S2 without murmur, rub or gallop. ABDOMEN: Surgical dressings are dry and intact. No evidence of infection. Soft, nontender, nondistended, normoactive bowel sounds, no guarding, no rebound, no hepatosplenomegaly, no masses. EXTREMITIES: 2+ pulses, warm, well-perfused, no edema. NEUROLOGICAL: Cranial nerves II through XII grossly intact. Normal speech, gait not observed. PSYCH: Normal mood, normal affect. SKIN: Warm, dry, normal turgor, no rashes or lesions noted. LABS Laboratory Results - last 24 hr 10/08/16 10/08/16 06:00 06:00 WBC 7.0 RBC 4.29 Hgb 12.0 Hct 36.3 MCV 84.5 MCHC 33.1 RDW 15.3 Plt Count 166 MPV 9.7 Neutrophils % 66.8 Lymphocytes % 22.1 Monocytes % 8.5 Eosinophils % 2.1 D Basophils % 0.5 Sodium 141 Potassium 3.8 Chloride 106 Carbon Dioxide 26 Anion Gap 9 BUN 6 L Creatinine 0.6 Random Glucose 87 Calcium 8.3 L Phosphorus 3.8 Magnesium 2.1 D HOSPITAL COURSE: Date of Admission:10/04/16 Date of Discharge: 10/08/16 Consults: Dr. Chago Mendenhall; Surgical ED Course Pt. with no significant PMH, primarily [place] speaking, presented to the ED on 10/04/16 with RUQ. Pt. states that she noticed the pain began around one month ago. The pain was intermittent and worse after eating. Denied N/V/D, fevers, chills, constipation at that time. US of the RUQ at that time showed many calculi in the gallbladder with gall bladder distention. There was also mild wall thickening significant for acute inflammation. She was admitted for cholecystitis. Surgery was consulted and cholecystectomy was scheduled. Hospital Course Antibiotics were started for a white count of 11.0. She was placed on IV Ciprofloxicin and Flagyl starting one day prior to surgery (10/05/16). She was taken for her laparoscopic cholecystectomy on 10/06/16. The gall bladder was removed with no complications. A STACI drain was placed. She remained in the hospital for 2 days post op and continued her antibiotic therapy. Pt. had mild pain after surgery, controlled with tylenol and oxycodone. Her STACI drain put out 155 cc of serosanganous fluid POD #1. POD#2 the drain put out 22cc of serosanganous fluid. The drain was removed by surgery POD #2. IV ciprofloxicin and flagyl were discontinued POD#2. Discharge Pt. was discharged home POD #2 after the drain was removed. Pt. reports good pain control and that she is able to move with out pain. Her dressings are clean , dry and intact. Discharge instructions were given through an reference investigator. Pt. was given instructions on how to care for her surgical sites and to keep her follow up with surgery as an out patient. She was instructed to return if she develops severe pain at the surgical site, excessive bleeding from the incision sites, or new fevers/chills. Minutes to complete discharge: 35 Discharge Summary Reason For Visit: CHOLECYSTITIS Current Active Problems Cholecystitis (Acute) Condition: Improved - Instructions Diet, Activity, Other Instructions: Dr. Mendenhall Discharge Instructions Dear BERT DEAN, Post Operative Instructions Physical activity Resume your normal everyday activity as tolerated, no heavy lifting or exercise until seen by your surgeon. You may walk unlimited kenzie of and climb stairs. You may resume driving the car when you feel safe and comfortable behind the wheel, but do not drive while taking narcotics. Wound care If you have a bandage, you may change it as needed. If there are tapes on the skin under the outer bandage, leave them in place. They will peel off in the next 7 to 10 days. Do Not Peel them off. You may shower. If there are tapes present on the skin, you may shower over them. Diet There are no dietary restrictions. Eat healthy, high-fiber foods. Drink 6 to 8 glasses of liquid each day. This will assist in keeping your bowels are regular. Pain management You may take Tylenol (acetaminophen) or Ibuprofen (for example, Motrin, Advil etc.) Any pain prescription medication ordered should be taken as prescribed for moderate to severe pain. Call Dr. Mendenhall for any of the following: Severe pain not relieved by medication Fever of 101 or higher Excessive bleeding or drainage on dressing Inability to urinate Call the office at [phone] for an appointment in seven days. Referrals: Chago Mendenhall MD [Staff Physician] - Disposition: HOME - Home Medications Comprehensive Discharge Medication List: Ambulatory Orders Oxycodone HCl [Roxicodone -] 5 mg PO Q6H PRN #10 tablet MDD 4 10/08/16 This patient is new to me today: No Emergency Visit: Yes ED Registration Date: 10/04/16 Care time: The patient presented to the Emergency Department on the above date and was hospitalized for further evaluation of their emergent condition. Critical Care patient: No - Discharge Referral Referred to [facility] No
[2016-10-08 09:25] VITALS: BP 100/61; PULSE 81; TEMP 98
--- NOTE | 2016-10-08 09:37 | OP ---
DATE OF OPERATION: 10/06/2016 PREOPERATIVE DIAGNOSIS: Acute cholecystitis, cholelithiasis, and hydrops of the gallbladder. POSTOPERATIVE DIAGNOSIS: Acute cholecystitis, cholelithiasis, and hydrops of the gallbladder. PROCEDURE: Laparoscopic cholecystectomy. SURGEON: Chago Mendenhall MD CARD SELLER: Sugar Hussein PA-C ANESTHESIA: General. OPERATIVE FINDINGS: There was acute cholecystitis, cholelithiasis, and hydrops of the gallbladder. The rest of the findings were unremarkable. DESCRIPTION OF PROCEDURE: The patient was placed on the operating table in supine position, and after the induction of general anesthesia and the placement of sequential compression devices on the patients lower extremities, a time-out was taken. The pneumoperitoneum was established above the umbilicus using a Veress needle. A 5-mm port was then placed, and laparoscopy carried out, and the previously noted findings were observed. A subxiphoid 11-mm port and lateral 5-mm ports were placed, and then, the gallbladder was placed on cephalad and lateral traction. Adhesions of omentum from the gallbladder were taken down using blunt dissection and electrocautery. The triangle of Calot was identified, and the cystic duct identified coursing from the neck of the gallbladder to the common bile duct. It was dissected proximally and distally for length as was the artery. The peritoneum was opened laterally and medially, and critical view of safety was taken. The duct was then divided using the EndoShears after the placement of 2 large clips proximally and distally, and the cystic artery similarly clipped and divided. The cystic duct lymph node was taken out with the gallbladder. The gallbladder was then removed from the liver bed in a retrograde fashion using electrocautery. Prior to removal of the gallbladder from the edge of the liver, hemostasis was checked for and noted to be good. The gallbladder was removed from the edge of the liver using electrocautery, placed in an EndoCatch, and brought out through the subxiphoid port. Pneumoperitoneum was reestablished, hemostasis verified, and copious irrigation carried out with normal saline. A 10-mm Matt-Scanlon drain was placed in the right hepatorenal fossa and brought out through one of the 5-mm lateral port sites and secured to the skin using 2-0 silk suture. The pneumoperitoneum evacuated after all ports were removed under laparoscopic vision without evidence of bleeding from the port sites. The pneumoperitoneum was evacuated, the port sites infiltrated with 0.5% Marcaine, and the skin edges reapproximated with 4-0 Vicryl in a subcuticular continuous fashion. Steri-Strips and Band-Aid dressings were placed. The drain was connected to the bulb self-suction, and the patient was roused from general anesthesia and transferred to the post-anesthesia care unit in stable condition, awake and alert. ESTIMATED BLOOD LOSS: 20 mL. REPLACEMENTS: Crystalloid. DRAINS: One 10-mm Matt-Scanlon. SPECIMENS: Gallbladder and contents to Pathology. I, Chago Mendenhall, was physically present in the operating room from the time the patient was placed on the operating table until she was transferred to the post-anesthesia care unit in my accompaniment. MD YAYO Miller/[id number]
[2016-10-08] MEDS: cefTRIAXone 2 GM/100 ML BAG (PRE-DOCKED) IVPB SCH (14:31)
== END 2016-10-08 10:25 | disposition home or self-care (01) | DRG 263 ==
LOC: JER 22:08 → JERBED 10-04 09:01 → J7W 10-04 12:32
PROVIDERS: ADMIT Internal Medicine; ATTEND Nurse Practitioner Acute Care
PROC: 0FT44ZZ Resection of Gallbladder, Percutaneous Endoscopic Approach (ICD-10-PCS; principal; 2016-10-06 08:30)
DX: K80.00 Calculus of gallbladder with acute cholecystitis without obstruction (principal); K82.1 Hydrops of gallbladder
CPT/HCPCS: 36415; 71020-TC; 74177-TC; 76705-TC; 80048; 80053; 81003; 82150; 83690; 83735; 84100; 84703; 85025; 85610; 86850; 86900; 86901; 87491; 87591; 88304-TC; 93005; 93010; 94760; 99284-25